=== PATIENT | female | born 2005 | race Caucasian/White ===

== ENCOUNTER 2025-07-12 01:15 | Emergency (ER) | payer BC, SELFPAY ==
[2025-07-12 01:50] VITALS: BP 137/99
[2025-07-12 04:05] VITALS: BP 115/80
[2025-07-12] MEDS: TYLENOL 650 MG PO (04:11)
[2025-07-12 04:35] LABS: Hematocrit 37.1 % (37.0-47.0); Hemoglobin 12.7 g/dL (12.0-16.0); Mean Corp Hgb Conc. 34.2 g/dL (33.0-37.0); Mean Corpuscular Volume 75.9 fL (81.0-99.0); Nucleated Red Blood Cells % 0 %; Platelet Count 225 10^3/uL (130-400); Red Cell Dist. Width 14.4 % (11.5-14.5)
[2025-07-12 04:48] LABS: HCG, Serum Qualitative Screen Negative
[2025-07-12 05:00] VITALS: BP 116/77
[2025-07-12 05:00] LABS: ALT (SGPT) 12 U/L (0-35); AST (SGOT) 18 U/L (14-36); Albumin 4.5 g/dl (3.5-5.0); Alkaline Phosphatase 55 U/L (38-126); Blood Urea Nitrogen 9 mg/dl (7-17); Calcium 9.3 mg/dl (8.4-10.2); Carbon Dioxide 21 mmol/L (22-30); Chloride 106 mmol/L (98-107); Glucose 104 mg/dl (70-99); Potassium 3.7 mmol/L (3.5-5.1); Sodium 138 mmol/L (135-145); Total Protein 6.9 g/dl (6.3-8.2); eGFR > 60.00
[2025-07-12 06:00] VITALS: BP 129/80
[2025-07-12 06:29] LABS: COVID-19 Antigen Negative (Negative)
--- NOTE | 2025-07-12 06:47 | ED.GENMED ---
History of Present Illness
General
Chief Complaint: Fever
Source: patient and family
Exam Limitations: none
Time Seen by Provider: 07/12/25 05:39
Nursing documentation reviewed up to this point in time: agreed with
History of Present Illness
History of Present Illness:
19-year-old female with history of migraines presents to the ER for evaluation of flulike illness. Patient received both her COVID and her influenza shots on afternoon. She says that on Monday she began having flulike symptoms including
fever, chills, headache, sore throat, swollen lymph nodes in the right underarm and neck, myalgias. Came to the ER for assessment.
Review of Systems
Review of Systems
All Other Systems: ROS reviewed and negative except as documented in HPI and ROS
Constitutional: Reports fever, fatigue and chills
EENT: Reports sore throat
Respiratory: Reports cough; Denies trouble breathing
Cardiac: Denies chest pain
ABD/GI: Denies abdominal pain, nausea or vomiting
: Denies flank pain
Musculoskeletal: Reports muscle pain; Denies back pain
Neurological: Reports headache
Phy Exam
Physical Exam
Physical Exam:
General: Awake, alert, oriented x3; no acute distress
Head: Normocephalic, atraumatic
Eyes: Conjunctiva normal
Throat: Airway intact, handling secretions
Neck: Trachea midline, supple without meningismus, slight anterior cervical chain adenopathy noted
Lungs: Clear to auscultation bilaterally, no wheezing, rales, rhonchi
Heart: Tachycardia with regular rhythm, no murmurs, gallops, or rubs
Abd: Soft, non distended, nontender
Neuro: Grossly intact
Skin: Warm and dry
Extremities: No edema in extremities, warm and well-perfused, adenopathy noted right underarm
Scores
Heart Failure Risk
Heart Failure Risk Score: Not Applicable
Heart Score for Chest Pain Patients
STEMI patient?: Not applicable
Withdrawal Assessment of Alcohol
Withdrawal Assessment Completed?: Not applicable
Sepsis
Sepsis Screening
Sepsis Assessment: Sepsis Ruled Out
Sepsis Screen
Sepsis Screen: Sepsis Ruled Out
Date: 07/12/25
Time: 06:53
Course
Orders/Labs/Results
Orders:
Orders
07/12/25 03:40
Test Result ONCE
07/12/25 04:05
Complete Blood Count/With Diff Urgent
Comprehensive Metabolic Panel Urgent
HCG, Serum Qualitative Screen Urgent
TSH Urgent
Comment: ADD ON
07/12/25 04:10
Acetaminophen [Tylenol] 650 mg .ROUTE .STK-MED ONE
07/12/25 04:11
Acetaminophen [Tylenol] 650 mg PO NOW STA
07/12/25 05:51
COVID-19 Antigen Urgent
Source: Nasal Swab
Influenza A+B Rapid Molecular Urgent
OCTAVIO Source: Nasal Swab
Specimen Description:
07/12/25 06:07
Add On- LAB Urgent
Tests Added?: TSH
Abnormal Lab Results
07/12/25
04:05
MCV 75.9 L fL
(81.0-99.0)
MCH 26.0 L pg
(27.0-31.0)
Absolute Neuts (auto) 7.4 H 10^3/uL
(1.4-6.5)
Absolute Monos (auto) 0.9 H 10^3/uL
(0.1-0.6)
Lymphocytes % 16.8 L %
(20.5-51.1)
Carbon Dioxide 21 L mmol/L
(22-30)
Glucose 104 H mg/dl
(70-99)
07/12/25 04:05
07/12/25 04:05
Vital Signs
Initial and Last Documented VS:
Initial Vital Signs
Temp Pulse Resp BP Pulse Ox
38.8 C H 123 20 137/99 97
07/12/25 01:50 07/12/25 01:50 07/12/25 01:50 07/12/25 01:50 07/12/25 01:50
Last Documented Vital Signs
Temp Pulse Resp BP Pulse Ox
37.9 C 104 18 129/80 97
07/12/25 04:07 07/12/25 04:06 07/12/25 04:06 07/12/25 06:00 07/12/25 06:53
MDM/Problems Addressed
Differential Diagnosis Includes:
Viral syndrome, vaccine related symptoms
MDM/Problems Addressed:
19-year-old female presents for evaluation of flulike symptoms that started 24 hours after receiving both flu and COVID vaccines. She was febrile on arrival here and tachycardic but vitals improved with Tylenol. Labs sent off including a CBC and a
CMP which showed no clinically significant abnormalities. COVID and flu swabs negative. Suspect symptoms related to recent vaccinations. Advised supportive care for the next few days, follow-up with primary doctor.
*Pulse Oximetry
SaO2: 97
Oxygen Mode of Delivery: Room air
Patient hypoxic: no (97%)
*Critical Care Note
Total Time (30-74mins, 75-104mins- exclusive of procedures): Not Applicable
Data Reviewed
Source: patient and family
ED Attending Note
-
Portions of this chart may have been created with voice recognition software.� Occasional wrong word or��sound alike� substitutions may have occurred due to the inherent limitations of voice recognition software.
Discharge Plan
Departure
Patient Disposition: Home (Routine Discharge)
Date of Disposition: 07/12/25
Time of Disposition: 06:53
Patient with high blood pressure during this ER visit?: No
Discharge Problem:
Fever after vaccination
Instructions: What you should know about vaccines, Flu vaccine
Referrals:
PRIVATE,PHYSICIAN [Family Provider, Internal Medicine]
Activity Restrictions/Additional Instructions:
Take Tylenol and ibuprofen as needed for the next few days to help control your symptoms. You should follow-up with your primary doctor next week to be reassessed after your ER visit. Please return if symptoms are worsening or not improving.
Interventions
Interventions:
*Risk Screen - Suicide Last Done: 07/12/25 04:07
*General Assessment Last Done: 07/12/25 01:50
*Neglect/Abuse Screening Last Done: 07/12/25 01:50
*ED- Fall Risk Assessment Last Done: 07/12/25 01:50
*ED COVID-19 Vaccine History Last Done: 07/12/25 01:50
*ED Influenza Vaccine History Last Done: 07/12/25 01:50
ED- Neurological Assessment Last Done: 07/12/25 03:57
ED-Skin Assessment Last Done: 07/12/25 03:57
Discharge Date and Time
Print Language: FRENCH
[2025-07-12 07:47] LABS: TSH 3.36 uIU/ml (0.47-4.68)
== END 2025-07-12 07:04 | disposition home or self-care (01) ==
LOC: EMR 01:15
PROVIDERS: EMERGENCY PHYSICIAN Emergency Medicine
DX: R50.83 Postvaccination fever (principal); Z11.52 Encounter for screening for COVID-19
CPT/HCPCS: 99283; 80053; 84443; 84703; 85025; 87502; 87811